=== PATIENT | female | born 1965 | race American Indian/Alaskan Native ===

== ENCOUNTER 2019-01-10 19:53 | Emergency (ER) | payer OTHER ==
[2019-01-10] MEDS ORDERED: ASPIRIN 325 MG TAB PO ONE (20:39)
--- NOTE | 2019-01-10 20:40 | Event Note ---
ED Screening Note Date of service: 01/10/19 Time: 20:36 ED Screening Note: This is a 53 y.o. F. that presents to the ER with left sided chest pain radiating to LUE x 2 weeks intermittently. Patient thought pain was initially gas but unresolved with meds. She also complain of spasms to left buttock for several years that flared for months with out NSAID relief. PMH HTN This initial assessment/diagnostic orders/clinical plan/treatment(s) is/are subject to change based on patients health status, clinical progression and re- assessment by fellow clinical providers in the ED. Further treatment and workup at subsequent clinical providers discretion. Patient/guardian urged not to elope from the ED as their condition may be serious if not clinically assessed and managed. Initial orders include: Labs, EKG, & CXR
[2019-01-10 21:19] LABS: Basophils % (Auto) 0.5 % (0.0-1.8); Eosinophils # (Auto) 0.1 K/mm3 (0.0-0.4); Eosinophils % (Auto) 0.8 % (0.0-4.3); Hematocrit 41.3 % (30.3-42.9); Hemoglobin 13.2 gm/dl (10.1-14.3); Lymphocytes # (Auto) 2.5 K/mm3 (1.2-5.4); Lymphocytes % (Auto) 28.8 % (13.4-35.0); Mean Corpuscular HGB Conc 32 % (30-34); Mean Corpuscular Volume 87 fl (79-97); Monocytes # (Auto) 0.7 K/mm3 (0.0-0.8); Monocytes % (Auto) 7.6 % (0.0-7.3); Platelet Count 226 K/mm3 (140-440); Red Blood Count 4.76 M/mm3 (3.65-5.03); Red Cell Distribution Width 16.4 % (13.2-15.2)
[2019-01-10 21:39] LABS: BUN/Creatinine Ratio 20; Blood Urea Nitrogen 18 mg/dL (7-17); Calcium 9.6 mg/dL (8.4-10.2); Hemolysis Index 11
--- NOTE | 2019-01-10 21:56 | XRay Report ---
CHEST 1 VIEW INDICATION: Chest Pain. COMPARISON: None. FINDINGS: Support devices: None. Heart: Normal. Lungs/Pleura: No acute pulmonary or pleural findings. IMPRESSION: 1. No acute findings. Signer Name: Kingsley Rowe MD Signed: 01/10/2019 9:51 PM Workstation Name: [id number]
--- NOTE | 2019-01-11 00:16 | Emergency Department Report ---
ED Chest Pain HPI - General Chief Complaint: Chest Pain Stated Complaint: ARM/CHEST PAIN Time Seen by Provider: 01/10/19 20:36 Source: patient Mode of arrival: Ambulatory Limitations: No Limitations - History of Present Illness Initial Comments: 53 yo F, hx of HTN, noncompliant with medication, presents to ED with complaint of chest pain. Pt reports left sided intermittent chest pain radiating into the left arm and fingers. States pain is sharp, with associated nausea and diaphoresis. Pt reports SOB at night when she is trying to sleep. Denies any lower extremity pain or swelling. Pt reports she used to take BP meds but stop taking them approx 1 year ago b/c she did not like the way they made her feel. Denies tobacco, drug use. -: week(s) (2) Onset: during rest, during exertion Pain Location: left chest Pain Radiation: LUE Severity: moderate Severity scale (0 -10): 5 Quality: sharp Consistency: intermittent, now resolved Improves With: nothing Worsens With: exertion, other (emotional stress) re: nausea, diaphoresis, dyspnea. denies: vomting Other Symptoms: denies: leg swelling - Related Data Previous Rx's Medication Instructions Recorded Last Taken Type Triamcinolone 0.5% [Kenalog 0.5% 1 applic TP TID #1 tube 01/03/18 Unknown Rx CREAM] amLODIPine [Norvasc] 5 mg PO DAILY #30 tab 01/03/18 Unknown Rx hydrOXYzine PAMOATE [Vistaril] 25 mg PO Q6HR PRN #15 capsule 01/03/18 Unknown Rx hydroCHLOROthiazide 12.5 mg PO DAILY #30 tablet 01/03/18 Unknown Rx [Hydrochlorothiazide] Allergies Allergy/AdvReac Type Severity Reaction Status Date / Time No Known Allergies Allergy Unverified 10/01/13 23:39 Heart Score - HEART Score History: Moderately suspicious EKG: Normal Age: 45-65 Risk factors: > 3 risk factors or hx of atherosclerotic disease Troponin: < normal limit HEART Score: 4 ED Review of Systems ROS: Stated complaint: ARM/CHEST PAIN Other details as noted in HPI Comment: All other systems reviewed and negative Constitutional: denies: chills, fever Respiratory: shortness of breath Cardiovascular: chest pain Gastrointestinal: nausea. denies: vomiting Musculoskeletal: other (denies leg pain or swelling) ED Past Medical Hx - Past Medical History Previous Medical History?: Yes Hx Hypertension: Yes Hx Kidney Stones: Yes (2010) Additional medical history: Obesity - Surgical History Past Surgical History?: No - Social History Smoking Status: Never Smoker - Medications Home Medications: Home Medications Medication Instructions Recorded Confirmed Last Taken Type Triamcinolone 0.5% [Kenalog 0.5% 1 applic TP TID #1 tube 01/03/18 Unknown Rx CREAM] amLODIPine [Norvasc] 5 mg PO DAILY #30 tab 01/03/18 Unknown Rx hydrOXYzine PAMOATE [Vistaril] 25 mg PO Q6HR PRN #15 capsule 01/03/18 Unknown Rx hydroCHLOROthiazide 12.5 mg PO DAILY #30 tablet 01/03/18 Unknown Rx [Hydrochlorothiazide] ED Physical Exam - General Limitations: No Limitations General appearance: alert, in no apparent distress, obese - Head Head exam: Present: atraumatic, normocephalic - Eye Eye exam: Present: normal appearance, PERRL, EOMI - ENT ENT exam: Present: mucous membranes moist - Neck Neck exam: Present: normal inspection - Respiratory Respiratory exam: Present: normal lung sounds bilaterally. Absent: respiratory distress - Cardiovascular Cardiovascular Exam: Present: regular rate, normal rhythm - GI/Abdominal GI/Abdominal exam: Present: soft. Absent: distended, tenderness - Extremities Exam Extremities exam: Present: normal inspection. Absent: pedal edema, calf tenderness - Neurological Exam Neurological exam: Present: alert, oriented X3 - Psychiatric Psychiatric exam: Present: normal affect, normal mood - Skin Skin exam: Present: warm, dry, intact, normal color ED Course Vital Signs 01/10/19 01/10/19 01/11/19 20:24 20:37 00:27 Temperature 97.8 F 97.8 F Pulse Rate 91 H 91 H 77 Respiratory 18 20 20 Rate Blood Pressure 212/104 Blood Pressure 212/104 173/101 [Left] O2 Sat by Pulse 100 100 97 Oximetry 01/11/19 01/11/19 01:46 02:15 Temperature Pulse Rate 89 75 Respiratory 16 Rate Blood Pressure 173/101 Blood Pressure 162/92 [Left] O2 Sat by Pulse 97 Oximetry ED Medical Decision Making - Lab Data Result diagrams: 01/11/19 01:44 01/11/19 01:44 - EKG Data -: EKG Interpreted by Me EKG shows normal: sinus rhythm, axis, intervals, QRS complexes, ST-T waves Rate: normal - EKG Data Interpretation: no acute changes - Radiology Data Radiology results: report reviewed, image reviewed - Medical Decision Making 53 yo F w/ uncontrolled HTN and chest pain. BP improved w/ labetalol. EKG and troponin normal. Pt with HEART score of 4, will admit to hospitalist, Dr Horton, for further evaluation and management. - Differential Diagnosis ACS, HTN emergency, pulm edema Critical Care Time: Yes Critical care time in (mins) excluding proc time.: 35 Critical care attestation.: If time is entered above; I have spent that time in minutes in the direct care of this critically ill patient, excluding procedure time. Critical Care Time: 35 min ED Disposition Clinical Impression: Acute chest pain, Hypertensive emergency Disposition: OP ADMIT IP TO THIS HOSP Is pt being admited?: Yes Condition: Stable Instructions: Chest Pain (ED), Hypertension (ED) Referrals: JOSE R GUO MD [Primary Care Provider] - 3-5 Days Forms: AMA Form Time of Disposition: 01:05
[2019-01-11] MEDS ORDERED: ACETAMINOPHEN 325 MG TAB PO PRN (01:18)
[2019-01-11] MEDS ORDERED: ONDANSETRON 4 MG/2 ML INJ IV PRN (01:18)
[2019-01-11] MEDS ORDERED: ALBUTEROL 2.5 MG/3 ML NEBU IH PRN (01:18)
[2019-01-11] MEDS ORDERED: MORPHINE 2 MG/1 ML INJ IV PRN (01:18)
[2019-01-11] MEDS ORDERED: hydrALAZINE 20 MG/1 ML INJ IV PRN (01:21)
--- NOTE | 2019-01-11 01:29 | History and Physical Report ---
History of Present Illness Date of examination: 01/11/19 Date of admission: 01/11/2019 Chief complaint: Chest Pain History of present illness: 53-year-old -Romanian obese female with history hypertension who presents to [facility] ED with complaints of intermittent left-sided chest pain with radiation to left arm and fingers. Patient states that for the past 2 weeks she's been having intermittent left-sided chest pain with radiation to left arm and fingers and shortness of breath accompanied by nausea and diaphoresis. Patient attributes her chest pain to a series of stressful events that occurred over the past 2 weeks with her adult child. She describes her pain as sharp and rates it 5/10. Her pain is aggravated I stress and relieved with rest. She admits to being noncompliant with antihypertensive medication for the past year stating that she stopped taking them because, " I don't like the weight he make me feel". Denies: Emesis, hemoptysis, hematemesis, headache, visual disturbances, or gait dysfunction Past History Past Medical History: hypertension, other (Kidney Stones (2010), obesity) Past Surgical History: No surgical history Social history: , lives with family. denies: smoking Family history: no significant family history Medications and Allergies Allergies Allergy/AdvReac Type Severity Reaction Status Date / Time No Known Allergies Allergy Unverified 10/01/13 23:39 Home Medications Medication Instructions Recorded Confirmed Last Taken Type Triamcinolone 0.5% [Kenalog 0.5% 1 applic TP TID #1 tube 01/03/18 Unknown Rx CREAM] amLODIPine [Norvasc] 5 mg PO DAILY #30 tab 01/03/18 Unknown Rx hydrOXYzine PAMOATE [Vistaril] 25 mg PO Q6HR PRN #15 capsule 01/03/18 Unknown Rx hydroCHLOROthiazide 12.5 mg PO DAILY #30 tablet 01/03/18 Unknown Rx [Hydrochlorothiazide] Review of Systems All systems: negative Constitutional: other (diaphoresis) Cardiovascular: chest pain, orthopnea, shortness of breath Gastrointestinal: nausea Exam - Physical Exam Narrative exam: Physical exam General appearance: Present: No acute distress, alert and oriented 3, well- developed, obese, middle age -Romanian adult female - EENT Eyes: Present: PERRL, EOM ENT: hearing intact, normal dentition - Neck Neck: Present: supple, normal ROM - Respiratory Respiratory effort: Non-labored Respiratory: CTA bilaterally - Cardiovascular Heart rate: 94 (bpm) Rhythm: S, PVC Heart Sounds: Present: S1 & S2. Absent: rub, click - Extremities Extremities: no ischemia, pulses intact - Peripheral Assessment Peripheral Pulses: within normal limits - Abdominal General gastrointestinal: Obese, soft, non-tender, normal bowel sounds - Integumentary Integumentary: Present: warm, dry - Musculoskeletal Musculoskeletal: Normal gait -Neurological Neurological: CN II-XII grossly intact - Psychiatric Psychiatric: cooperative - Constitutional Vitals: Temp Pulse Resp BP Pulse Ox 97.8 F 77 20 173/101 97 01/10/19 20:37 01/11/19 00:27 01/11/19 00:27 01/11/19 00:27 01/11/19 00:27 Results - Labs CBC & Chem 7: 01/11/19 01:44 01/10/19 21:06 Labs: Laboratory Last Values WBC 8.8 K/mm3 (4.5-11.0) 01/10/19 21:06 RBC 4.76 M/mm3 (3.65-5.03) 01/10/19 21:06 Hgb 13.2 gm/dl (10.1-14.3) 01/10/19 21:06 Hct 41.3 % (30.3-42.9) 01/10/19 21:06 MCV 87 fl (79-97) 01/10/19 21:06 MCH 28 pg (28-32) 01/10/19 21:06 MCHC 32 % (30-34) 01/10/19 21:06 RDW 16.4 % (13.2-15.2) H 01/10/19 21:06 Plt Count 226 K/mm3 (140-440) 01/10/19 21:06 Lymph % (Auto) 28.8 % (13.4-35.0) 01/10/19 21:06 [place] % (Auto) 7.6 % (0.0-7.3) H 01/10/19 21:06 Eos % (Auto) 0.8 % (0.0-4.3) 01/10/19 21:06 Baso % (Auto) 0.5 % (0.0-1.8) 01/10/19 21:06 Lymph # 2.5 K/mm3 (1.2-5.4) 01/10/19 21:06 [place] # 0.7 K/mm3 (0.0-0.8) 01/10/19 21:06 Eos # 0.1 K/mm3 (0.0-0.4) 01/10/19 21:06 Baso # 0.0 K/mm3 (0.0-0.1) 01/10/19 21:06 Seg Neutrophils % 62.3 % (40.0-70.0) 01/10/19 21:06 Seg Neutrophils # 5.5 K/mm3 (1.8-7.7) 01/10/19 21:06 Sodium 141 mmol/L (137-145) 01/10/19 21:06 Potassium 3.9 mmol/L (3.6-5.0) 01/10/19 21:06 Chloride 102.2 mmol/L (98-107) 01/10/19 21:06 Carbon Dioxide 27 mmol/L (22-30) 01/10/19 21:06 16 mmol/L 01/10/19 21:06 BUN 18 mg/dL (7-17) H 01/10/19 21:06 0.9 mg/dL (0.7-1.2) 01/10/19 21:06 Estimated GFR > 60 ml/min 01/10/19 21:06 20 % 01/10/19 21:06 Glucose 98 mg/dL (65-100) 01/10/19 21:06 Calcium 9.6 mg/dL (8.4-10.2) 01/10/19 21:06 < 0.010 ng/mL (0.00-0.029) 01/10/19 23:25 - Imaging and Cardiology Imaging and Cardiology: CXR: FINDINGS: Support devices: None. Heart: Normal. Lungs/Pleura: No acute pulmonary or pleural findings. IMPRESSION: 1. No acute findings. Assessment and Plan Assessment and plan: 53-year-old -Romanian obese female with history hypertension noncompliant with meds who presents to [facility] ED with complaints of intermittent left-sided chest pain with radiation to left arm and fingers for the past 2 weeks. Hypertensive urgency -BP on admission 212/104 -Hx Hypertension -Noncompliant with antihypertensive meds -Self-reports stopped taking BP meds 1 year ago b/c she didn't like how they made her feel -Continue to monitor BP -Start Norvasc -IV antihypertensive when necessary Acute Chest Pain R/O ACS -Coronary vasospasm due to elevated BP -Initiate chest pain protocol -Continuous telemetry monitoring -Continue supportive care -Pain mgmt -Treadmill stress test pending -Troponin negative x 2, will continue to trend x1 -Start ASA and Statin -Lipid panel pending -Cardiology Consulted Obesity -BMI 53.9 -May benefit from lifestyle and diet modifications -May benefit from outpatient weight management program DVT PPX -On Lovenox Advance Directives: No VTE prophylaxis?: Chemical Plan of care discussed with patient/family: Yes
[2019-01-11 01:56] LABS: Basophils # (Auto) 0.1 K/mm3 (0.0-0.1); Basophils % (Auto) 0.7 % (0.0-1.8); Eosinophils # (Auto) 0.1 K/mm3 (0.0-0.4); Eosinophils % (Auto) 0.9 % (0.0-4.3); Hematocrit 42.4 % (30.3-42.9); Lymphocytes # (Auto) 2.4 K/mm3 (1.2-5.4); Lymphocytes % (Auto) 26.8 % (13.4-35.0); Mean Corpuscular HGB Conc 33 % (30-34); Mean Corpuscular Volume 86 fl (79-97); Monocytes # (Auto) 0.6 K/mm3 (0.0-0.8); Platelet Count 207 K/mm3 (140-440); Red Blood Count 4.94 M/mm3 (3.65-5.03)
[2019-01-11 02:16] LABS: BUN/Creatinine Ratio 21; Blood Urea Nitrogen 17 mg/dL (7-17); Calcium 9.9 mg/dL (8.4-10.2); Hemolysis Index 39
[2019-01-11 02:18] VITALS: BP 162/92
--- NOTE | 2019-01-11 02:44 | Event Note ---
Date: 01/11/19 Pt has decided to sign out AMA. I have spoken with her regarding the risk associated with signing out AMA. She verbalized understanding.
[2019-01-11 04:17] LABS: Chol/HDL Ratio 3.84 %; HDL Cholesterol 64 mg/dL (40-59); LDL Cholesterol,Direct 195 mg/dL (50-130)
[2019-01-11] MEDS ORDERED: ENOXAPARIN 40 MG/0.4 ML INJ SUB-Q SCH (10:00)
[2019-01-11] MEDS ORDERED: amLODIPine 10 MG TAB PO SCH (10:00)
[2019-01-12] MEDS ORDERED: ASPIRIN 81 MG TAB CHEW PO SCH (10:00)
== END 2019-01-11 02:43 | disposition home or self-care (01) ==
LOC: ED 19:53
DX: I16.0 Hypertensive urgency (principal); I10 Essential (primary) hypertension; Z79.899 Other long term (current) drug therapy
CPT/HCPCS: 36415; 71045; 80048; 80061; 84484; 85025; 93005; 93010; 96374; 99285; 99291; J0360; J2270; J2405

== ENCOUNTER 2019-04-23 18:14 | Emergency (ER) | payer OTHER | END 2019-04-23 18:15 | disposition left against medical advice (07) | LOC: ED 18:14 | DX: R51 Headache (principal); Z53.21 Procedure and treatment not carried out due to patient leaving prior to being seen by health care provider ==

== ENCOUNTER 2019-09-11 09:25 | Emergency (ER) | payer SELFPAY ==
[2019-09-11 09:33] VITALS: BP 184/102
[2019-09-11] MEDS ORDERED: traMADol 50 MG TAB PO ONE (10:16)
[2019-09-11 10:29] LABS: Bilirubin,Urine NEG (Negative); Blood,Urine NEG (Negative); Color,Urine Yellow (Yellow); Mucus,Urine FEW /HPF; Protein,Urine <15 mg/dL mg/dL (Negative); Urobilinogen,Urine < 2.0 mg/dL (<2.0)
--- NOTE | 2019-09-11 10:40 | Emergency Department Report ---
ED Abdominal Pain HPI - General Chief Complaint: Abdominal Pain Stated Complaint: KIDNEY PAIN Time Seen by Provider: 09/11/19 10:16 Source: patient Mode of arrival: Ambulatory Limitations: No Limitations - History of Present Illness Initial Comments: pt is a 53 y/o aaf who presents for right flank pain that radiates to superpubic region x 2 days. she denies fever or chills, no vomiting, she does endorse intermittent nausea, urninary frequency, urgency no hematuria, she does have hx of renal stones. no vaginal discharge no vaginal bleeding. Onset/Timin -: days(s) Location: R flank Radiation: R flank Migration to: suprapubic Severity: moderate Severity scale (0 -10): 5 Quality: aching Consistency: intermittent Improves With: nothing Worsens With: other (voiding) Associated Symptoms: nausea, dysuria. denies: vomiting, melena - Related Data Previous Rx's Medication Instructions Recorded Last Taken Type Triamcinolone 0.5% [Kenalog 0.5% 1 applic TP TID #1 tube 01/03/18 Unknown Rx CREAM] amLODIPine 5 mg PO DAILY #30 tab 01/03/18 Unknown Rx hydrOXYzine PAMOATE [Vistaril] 25 mg PO Q6HR PRN #15 capsule 01/03/18 Unknown Rx hydroCHLOROthiazide 12.5 mg PO DAILY #30 tablet 01/03/18 Unknown Rx [Hydrochlorothiazide] Ibuprofen [Motrin 800 MG tab] 800 mg PO Q8HR PRN #30 tablet 09/11/[address] [place]/M-Cryst 100 mg PO BID 7 Days #17 capsule 09/11/19 Unknown Rx [Macrobid CAP] Allergies Allergy/AdvReac Type Severity Reaction Status Date / Time No Known Allergies Allergy Verified 09/11/19 09:27 ED Review of Systems ROS: Stated complaint: KIDNEY PAIN Other details as noted in HPI Constitutional: denies: chills, fever Eyes: denies: eye pain, eye discharge, vision change ENT: denies: ear pain, throat pain Respiratory: denies: cough, shortness of breath, wheezing Cardiovascular: denies: chest pain, palpitations Endocrine: no symptoms reported Gastrointestinal: nausea. denies: abdominal pain, vomiting, diarrhea, melena Genitourinary: urgency, dysuria, frequency. denies: hematuria, discharge Musculoskeletal: back pain (right flank ). denies: joint swelling, arthralgia Skin: denies: rash, lesions Neurological: denies: headache, weakness, paresthesias Psychiatric: denies: anxiety, depression Hematological/Lymphatic: denies: easy bleeding, easy bruising ED Past Medical Hx - Past Medical History Hx Hypertension: Yes Hx Kidney Stones: Yes (2010) Additional medical history: Obesity - Social History Smoking Status: Never Smoker Substance Use Type: None - Medications Home Medications: Home Medications Medication Instructions Recorded Confirmed Last Taken Type Triamcinolone 0.5% [Kenalog 0.5% 1 applic TP TID #1 tube 01/03/18 Unknown Rx CREAM] amLODIPine 5 mg PO DAILY #30 tab 01/03/18 Unknown Rx hydrOXYzine PAMOATE [Vistaril] 25 mg PO Q6HR PRN #15 capsule 01/03/18 Unknown Rx hydroCHLOROthiazide 12.5 mg PO DAILY #30 tablet 01/03/18 Unknown Rx [Hydrochlorothiazide] Ibuprofen [Motrin 800 MG tab] 800 mg PO Q8HR PRN #30 tablet 09/11/[address] [place]/M-Cryst 100 mg PO BID 7 Days #17 capsule 09/11/19 Unknown Rx [Macrobid CAP] ED Physical Exam - General Limitations: No Limitations General appearance: alert, in no apparent distress - Head Head exam: Present: atraumatic, normocephalic - Eye Eye exam: Present: normal appearance, EOMI Pupils: Present: normal accommodation - ENT ENT exam: Present: mucous membranes moist - Neck Neck exam: Present: normal inspection, full ROM - Respiratory Respiratory exam: Present: normal lung sounds bilaterally. Absent: respiratory distress, wheezes, stridor - Cardiovascular Cardiovascular Exam: Present: regular rate, normal rhythm, normal heart sounds. Absent: systolic murmur, diastolic murmur, rubs, gallop - GI/Abdominal GI/Abdominal exam: Present: soft, normal bowel sounds. Absent: distended, tenderness, bruit, hernia - Rectal Rectal exam: Present: deferred - Extremities Exam Extremities exam: Present: normal inspection, full ROM, normal capillary refill. Absent: tenderness - Back Exam Back exam: Present: full ROM, CVA tenderness (R). Absent: tenderness, CVA tenderness (L), vertebral tenderness, rash noted - Neurological Exam Neurological exam: Present: alert, oriented X3, CN II-XII intact, normal gait - Psychiatric Psychiatric exam: Present: normal affect - Skin Skin exam: Present: warm, dry, intact, normal color. Absent: rash ED Course Vital Signs 09/11/19 09/11/19 09:29 09:32 Temperature 98.3 F Pulse Rate 82 Respiratory 20 Rate Blood Pressure 184/102 O2 Sat by Pulse 96 Oximetry ED Medical Decision Making - Lab Data Labs 09/11/19 09:48 Urine Color Yellow Urine Turbidity Slightly-cloudy Urine pH 6.0 Ur Specific [place] 1.020 Urine Protein <15 mg/dl Urine Glucose (UA) Neg Urine Ketones Neg Urine Blood Neg Urine Nitrite Neg Urine Bilirubin Neg Urine Urobilinogen < 2.0 Ur Leukocyte Esterase Tr Urine WBC (Auto) 9.0 H Urine RBC (Auto) 2.0 U Epithel Cells (Auto) 2.0 Urine Mucus Few - Medical Decision Making this is a uti, no fever or chills no abd tenderness , no hematuria, plan: macrobid, ibuprofen follow up with pcp in 2-3 days. pt verbalized agreement and understanding of same. Critical care attestation.: If time is entered above; I have spent that time in minutes in the direct care of this critically ill patient, excluding procedure time. ED Disposition Clinical Impression: UTI (urinary tract infection) Qualifiers: Urinary tract infection type: acute cystitis Hematuria presence: without hematuria Qualified Code(s): N30.00 - Acute cystitis without hematuria Disposition: -01 TO HOME OR SELFCARE Is pt being admited?: No Does the pt Need Aspirin: No Condition: Stable Instructions: Urinary Tract Infection in Women (ED) Prescriptions: Nitrofurantoin [place]/M-Cryst [Macrobid CAP] 100 mg PO BID 7 Days #17 capsule Ibuprofen [Motrin 800 MG tab] 800 mg PO Q8HR PRN #30 tablet PRN Reason: pain Referrals: ELEUTERIO GUILLORY MD [Staff Physician] - 3-5 Days Forms: Work/School Release Form(ED) Time of Disposition: 10:47
[2019-09-11 11:06] LABS: Basophils % (Auto) 0.4 % (0.0-1.8); Eosinophils # (Auto) 0.1 K/mm3 (0.0-0.4); Eosinophils % (Auto) 0.9 % (0.0-4.3); Hematocrit 43.4 % (30.3-42.9); Lymphocytes # (Auto) 2.2 K/mm3 (1.2-5.4); Lymphocytes % (Auto) 30.3 % (13.4-35.0); Mean Corpuscular HGB Conc 32 % (30-34); Mean Corpuscular Volume 87 fl (79-97); Monocytes # (Auto) 0.5 K/mm3 (0.0-0.8); Monocytes % (Auto) 6.9 % (0.0-7.3); Platelet Count 200 K/mm3 (140-440); Red Blood Count 4.98 M/mm3 (3.65-5.03); Red Cell Distribution Width 15.5 % (13.2-15.2)
[2019-09-11 11:26] LABS: Alanine Aminotransferase 16 units/L (7-56); Albumin 4.4 g/dL (3.9-5); BUN/Creatinine Ratio 16; Blood Urea Nitrogen 16 mg/dL (7-17); Calcium 9.7 mg/dL (8.4-10.2); Hemolysis Index 1
== END 2019-09-11 10:57 | disposition home or self-care (01) ==
LOC: ED 09:25
DX: N39.0 Urinary tract infection, site not specified (principal); E66.9 Obesity, unspecified; Z87.442 Personal history of urinary calculi; Z68.43 Body mass index [BMI] 50.0-59.9, adult; Z79.899 Other long term (current) drug therapy
CPT/HCPCS: 36415; 80053; 81001; 83690; 85025; 87086